=== PATIENT | male | born 2000 | race Caucasian/White ===

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

== ENCOUNTER 2021-06-17 14:18 | Emergency (ER) | payer MEDICAID ==
[~2021-06-17] VITALS: Ht 182.9 cm; Wt 84.8 kg
[2021-06-17 16:15] VITALS: BP 95/68
== END 2021-06-17 16:48 | disposition home or self-care (01) ==
LOC: ER 14:18
DX: S91.331A Puncture wound without foreign body, right foot, initial encounter (principal); W22.8XXA Striking against or struck by other objects, initial encounter; Y93.89 Activity, other specified; Y92.89 Other specified places as the place of occurrence of the external cause; Y99.8 Other external cause status